=== PATIENT | female | born 1980 | race Caucasian/White ===

== ENCOUNTER 2022-03-21 13:54 | Inpatient (IN) | payer OTHER ==
[~2022-03-21] VITALS: Ht 157.5 cm; Wt 81.6 kg
[2022-04-05] MEDS ORDERED: PRENATAL TABLE1 EAC1 PO (09:21)
== END 2022-04-07 11:26 | disposition home or self-care (01) | DRG 807 ==
LOC: LDR 04-05 08:09 → OB/GYN 04-05 14:01
PROVIDERS: ADMIT Obstetrics & Gynecology; ATTEND Obstetrics & Gynecology
PROC: 10E0XZZ Delivery of Products of Conception, External Approach (ICD-10-PCS; principal; 2022-04-05)
PROC: 0W8NXZZ Division of Female Perineum, External Approach (ICD-10-PCS; 2022-04-05)
PROC: 4A1HXCZ Monitoring of Products of Conception, Cardiac Rate, External Approach (ICD-10-PCS; 2022-04-05)
DX: O80 Encounter for full-term uncomplicated delivery (principal); Z37.0 Single live birth; Z3A.38 38 weeks gestation of pregnancy; Z20.822 Contact with and (suspected) exposure to COVID-19